=== PATIENT | male | born 1950 | race Caucasian/White ===

== ENCOUNTER 2019-05-22 20:59 | Emergency (ER) | payer MEDICARE, OTHER ==
--- NOTE | 2019-05-22 21:14 | ED Physician Documentation ---
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 Patient states that he has had episodes of bad back pain in the past, and he has a neurosurgeon who would typically prescribe him some Percocet which helps after several days. However he has not needed any pain medications for 2 years. Yesterday he began having some pain in his back which he associates with going up and down some stairs too quickly, he denies any trauma to the back. Pain got somewhat better last night, but then got much worse today. He states is a sharp pain which is in his left lower back, and is nonradiating. He denies any pain or burning with urination. He did have vomiting when the pain came on, which he says was because it was so intense. He denies any chest pain or shortness of breath. He states the pain has always been in the left lower back. Review of Systems Constitutional: denies: Fever Cardiac: denies: Chest pain / pressure Respiratory: denies: Dyspnea GI: reports: Vomiting. denies: Abdominal Pain : denies: Dysuria Musculoskeletal: reports: Back pain Neurologic: denies: Focal weakness, Numbness PD PAST MEDICAL HISTORY - Past Medical History Cardiovascular: Hypertension, Arrhythmia - Past Surgical History Ortho: Spine surgery Other past surgical history: Pacemaker - Present Medications Home Medications: Ambulatory Orders Medication Instructions Recorded Confirmed Cyclobenzaprine [Flexeril] 10 mg PO TID PRN #20 tablet 05/23/19 Hydrocodone/Acetaminophen 1 - 2 each PO Q6H PRN #14 tablet 05/23/19 [Hydrocodon-Acetaminophen 5-325] Lidocaine Patch 5% [Lidoderm Patch] 1 patch TOP DAILY PRN #10 patch 05/23/19 - Allergies Allergies/Adverse Reactions: Allergies Allergy/AdvReac Type Severity Reaction Status Date / Time No Known Drug Allergies Allergy Verified 05/22/19 21:05 - Social History Does the pt drink ETOH?: Yes Substance Use and Type: Marijuana PD ED PE NORMAL - Vitals Vital signs reviewed: Yes - General General: Alert and oriented X 3, Other (Very uncomfortable) - HEENT HEENT: PERRL - Neck Neck: Supple, no meningeal sign - Cardiac Cardiac: RRR, No murmur - Respiratory Respiratory: Clear bilaterally - Abdomen Abdomen: Soft, Non tender, Non distended - Back Back: Other (Tenderness in the left lumbar paraspinous region) - Derm Derm: Warm and dry - Extremities Extremities: No deformity - Neuro Neuro: Alert and oriented X 3, 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, No motor deficit, No sensory deficit, Normal speech - Psych Psych: Normal mood, Normal affect Results - Vitals Vitals: Vital Signs - 24 hr 05/22/19 05/22/19 05/22/19 21:05 21:08 23:15 Temperature 36.7 C Heart Rate 78 76 78 Respiratory 20 27 H 17 Rate Blood Pressure 193/89 H 157/95 H 194/152 H O2 Saturation 99 100 96 05/22/19 05/23/19 05/23/19 23:23 01:34 02:10 Temperature 36.9 C Heart Rate 75 82 73 Respiratory 18 18 17 Rate Blood Pressure 191/94 H 176/92 H 176/75 H O2 Saturation 98 97 99 Oxygen O2 Source Room air - EKG (time done) 21:24 Other comments: Other comments (Rate 71, rhythm atrial sensed ventricular paced, there is no STEMI by Sgarbossa criteria) - Labs Labs: Laboratory Tests 05/22/19 05/22/19 05/22/19 21:14 21:22 21:22 WBC 9.8 RBC 5.14 Hgb 15.3 Hct 44.7 MCV 87.0 MCH 29.8 MCHC 34.2 RDW 12.1 Plt Count 279 MPV 9.4 Neut # (Auto) 7.5 H Lymph # (Auto) 1.5 [place] # (Auto) 0.7 Eos # (Auto) 0.0 Baso # (Auto) 0.0 Absolute Nucleated RBC 0.00 Nucleated RBC % 0.0 Sodium 137 Potassium 3.7 Chloride 97 L Carbon Dioxide 26 Anion Gap 14.0 H BUN 23 H Creatinine 0.9 Estimated GFR (MDRD) 84 L Glucose 203 H Calcium 9.2 Total Bilirubin 0.8 AST 21 ALT 25 Alkaline Phosphatase 45 Total Protein 8.2 Albumin 4.9 Globulin 3.3 Albumin/Globulin Ratio 1.5 Lipase 25 Urine Color YELLOW Urine Clarity CLEAR Urine pH 7.0 Ur Specific [place] 1.020 Urine Protein NEGATIVE Urine Glucose (UA) NEGATIVE Urine Ketones TRACE Urine Occult Blood TRACE-LYSE Urine Nitrite NEGATIVE Urine Bilirubin NEGATIVE Urine Urobilinogen 0.2 (NORMAL) Ur Leukocyte Esterase NEGATIVE Ur Microscopic Review NOT INDICATED Urine Culture Comments NOT INDICATED - Rads (name of study) CT abd/pelvis WO Radiology: Other (No clear patient patient's pain, no nephrolithiasis or obstruction, a few sigmoid diverticuli but no diverticulitis, normal appendix) CT angio chest abdomen pelvis Radiology: Other PD MEDICAL DECISION MAKING - ED course Complexity details: considered differential (Nephrolithiasis, musculoskeletal pain, UTI, diverticulitis, fracture, muscle strain/sprain, aortic dissection, AAA) ED course: On arrival patient is very uncomfortable and hypertensive, he is vomiting. He was given morphine and Zofran as well as fluids, and patient had improvement of his nausea but continued to have pain. He was given Valium and Toradol, which greatly improved his pain. CT of the abdomen pelvis without contrast was performed and did not reveal a clear cause of patient's discomfort, no stones or other acute abnormality. Labs are unrevealing, urine is negative for infection or blood. Patient has no chest pain, no shortness of breath, his pain is truly located in the lower back. EKG shows a ventricular paced rhythm. I highly doubt ACS given he has no symptoms whatsoever in his chest. Patient had recurrence of his pain, and given his continued discomfort, as well as the fact that he has had episodes of vomiting, and severe, sudden onset of the pain, CTA was ordered to rule out aortic dissection. CTA negative for dissection or aneurysm. On repeat exam patient is feeling improved, and is able to ambulate. He has no red flags for spinal compression today, normal strength and movement in his legs, no signs of cauda equina. I discussed follow up with his PCP and neurosurgeon, prescribed him flexeril, lidocaine patches, and percocet with instructions on safe use, Patient was discharged home in the care of a friend. Departure - Departure Disposition: Home, Self Care Clinical Impression: Acute back pain Qualifiers: Back pain location: low back pain Back pain laterality: left Sciatica presence: without sciatica Qualified Code(s): M54.5 - Low back pain Condition: Good Instructions: ED Neck Back Pain General Follow-Up: Iggy Lopez MD [Primary Care Provider] - Within 1 week Prescriptions: Cyclobenzaprine [Flexeril] 10 mg PO TID PRN #20 tablet PRN Reason: Spasms Hydrocodone/Acetaminophen [Hydrocodon-Acetaminophen 5-325] 1 - 2 each PO Q6H PRN #14 tablet PRN Reason: pain Lidocaine Patch 5% [Lidoderm Patch] 1 patch TOP DAILY PRN #10 patch PRN Reason: pain Comments: You were seen today for back pain. Your CT scans are reassuring at this time, and this may be musculoskeletal pain or related to your vertebral disc herniation. Avoid straining your back, avoid lifting heavy objects, and take Tylenol and ibuprofen for the pain. If this is not adequate, you may try the Flexeril, or the Percocet, but do not combine these together as they can be sedating, and when combined together they can be dangerous. Return to the emergency department if you develop new or worsening pain, numbness or weakness in your extremities, difficulty urinating or defecating, or any other concerning symptoms. Do not drink alcohol or drive while taking narcotic pain medication. Note that many narcotic pain relievers also contain Tylenol/acetaminophen. Please ensure that your total dose of acetaminophen from all sources does not exceed 3 g (3000 mg) per day. You may get constipated while on this medication. Take a stool softener such as Colace twice a day while you are on it. Also add an [id number] laxative such as senna or MiraLAX on any day that you do not have a bowel movement. If you received a narcotic pain medication or sedative while in the emergency department, do not drive for the next 24 hours. Discharge Date/Time: 05/23/19 02:31
[2019-05-22] MEDS ORDERED: ONDANSETRON 4 MG/2 ML VIAL IVP STA (21:15)
[2019-05-22] MEDS ORDERED: MORPHINE 2 MG/ML CARPUJECT IVP STA (21:15)
[2019-05-22] MEDS ORDERED: SODIUM CHLORIDE 0.9% 1,000 ML IV ONE (21:16)
[2019-05-22 21:28] LABS: BASOPHILS % (AUTO) 0.4 %; EOSINOPHILS % (AUTO) 0.4 %; HGB - HEMOGLOBIN 15.3 g/dL (14.0-18.0); LYMPHOCYTES # (AUTO) 1.5 10^3/uL (1.5-3.5); LYMPHOCYTES % (AUTO) 15.2 %; MEAN CORPUSCULAR HEMOGLOBIN 29.8 pg (27.0-31.0); MEAN CORPUSCULAR HGB CONC 34.2 g/dL (32.0-36.0); MEAN PLATELET VOLUME 9.4 fL (7.4-11.4); MONOCYTES # (AUTO) 0.7 10^3/uL (0.0-1.0); MONOCYTES % (AUTO) 7.3 %; NEUTROPHILS # (AUTO) 7.5 10^3/uL (1.5-6.6); NEUTROPHILS % (AUTO) 76.4 %; PLT - PLATELET COUNT 279 10^3/uL (130-450); RED BLOOD COUNT 5.14 10^6/uL (4.70-6.10); RED CELL DISTRIBUTION WIDTH 12.1 % (12.0-15.0); WHITE BLOOD COUNT 9.8 x10^3/uL (4.8-10.8)
[2019-05-22 21:41] LABS: ALBUMIN 4.9 g/dL (3.2-5.5); ALBUMIN/GLOBULIN RATIO 1.5 (1.0-2.2); BILIRUBIN,TOTAL 0.8 mg/dL (0.2-1.0); CALCIUM 9.2 mg/dL (8.5-10.3); CREATININE 0.9 mg/dL (0.6-1.2); TOTAL PROTEIN 8.2 g/dL (6.7-8.2)
[2019-05-22 21:56] LABS: BILIRUBIN,URINE NEGATIVE (NEGATIVE); GLUCOSE, URINE (UA) NEGATIVE (NEGATIVE); KETONES,URINE (UA) TRACE mg/dL (NEGATIVE); LEUKOCYTE ESTERASE, URINE NEGATIVE (NEGATIVE); NITRITE,URINE NEGATIVE (NEGATIVE); OCCULT BLOOD,URINE TRACE-LYSE (NEGATIVE); PROTEIN,URINE NEGATIVE (NEGATIVE); UROBILINOGEN,URINE 0.2 (NORMAL) E.U./dL (NORMAL)
[2019-05-22 21:57] LABS: CLARITY,URINE CLEAR (CLEAR)
--- NOTE | 2019-05-22 22:16 | CT Report ---
Reason: Left flank pain, vomiting Procedure Date: 05/22/2019 Accession Number: [id number] / [id number] Procedure: CT - Abdomen/Pelvis WO CPT Code: Final Report FULL RESULT: EXAM: CT ABDOMEN AND PELVIS (CT KUB) EXAM DATE: 05/22/2019 09:53 PM. CLINICAL HISTORY: Left flank pain, vomiting. COMPARISONS: None. TECHNIQUE: Routine axial helical CT imaging was performed through the abdomen and pelvis without IV contrast. Reconstructions: Coronal and sagittal. In accordance with CT protocol optimization, one or more of the following dose reduction techniques were utilized for this exam: automated exposure control, adjustment of mA and/or KV based on patient size, or use of iterative reconstructive technique. FINDINGS: Lung Bases: Unremarkable. Right Kidney/Ureter: No stones, hydronephrosis, or hydroureter. No perinephric fat stranding. Left Kidney/Ureter: No stones, hydronephrosis, or hydroureter. No perinephric fat stranding. Other Solid Organs: Noncontrast images of the solid organs are grossly unremarkable. Gallbladder/Bile Ducts: Unremarkable. Peritoneal Cavity: No free fluid, free air or vinicio adenopathy. Bowel is grossly unremarkable. Few colonic diverticuli in sigmoid colon however no diverticulitis. Normal appendix in right lower quadrant. Pelvic Organs: No bladder stones or wall thickening. Noncontrast images of the visualized pelvic organs are unremarkable. Vasculature: Unremarkable. Other: None. IMPRESSION: No urinary tract stones or obstruction. Few sigmoid colonic diverticuli however no diverticulitis. Normal appendix. RADIA
[2019-05-22] MEDS ORDERED: diazePAM INJ 5 MG/ML SYRINGE IVP STA (23:05)
[2019-05-22] MEDS ORDERED: KETOROLAC 30 MG/ML VIAL IVP STA (23:07)
[2019-05-23] MEDS ORDERED: IOVERSOL 320 100 ML VIAL IVP ONE ×2 (00:26→00:58)
[2019-05-23] MEDS ORDERED: fentaNYL 100 MCG/2 ML VIAL IVP STA ×2 (00:34→01:30)
[2019-05-23] MEDS ORDERED: oxyCODONE 5 MG TABLET PO STA (01:30)
[2019-05-23] MEDS ORDERED: LIDOCAINE PATCH 5% TOP STA (01:47)
--- NOTE | 2019-05-23 01:56 | CT Report ---
Reason: aorta study - sudden severe back pain, diaphoresis Procedure Date: 05/23/2019 Accession Number: [id number] / [id number] Procedure: CT - ANGIO ABDOMEN/PELVIS W CPT Code: Final Report FULL RESULT: EXAM: CT ANGIOGRAM ABDOMEN AND PELVIS WITH CONTRAST EXAM DATE: 05/23/2019 12:59 AM. CLINICAL HISTORY: Aorta study - sudden severe back pain, diaphoresis. COMPARISONS: ABDOMEN/PELVIS W/O 05/22/2019 9:48 PM. TECHNIQUE: Routine helical CT angiogram imaging was performed through the abdomen and pelvis in the arterial phase. IV contrast: . Enteric contrast: No. Reconstructions: Coronal, sagittal, and 3D MIP reconstructions. In accordance with CT protocol optimization, one or more of the following dose reduction techniques were utilized for this exam: automated exposure control, adjustment of mA and/or KV based on patient size, or use of iterative reconstructive technique. FINDINGS: Vasculature: Minimal atherosclerotic disease of the abdominal aorta. No aneurysm or dissection. The celiac, superior mesenteric, inferior mesenteric, and renal arteries are unremarkable. The common, external, and internal iliac arteries are patent. The visualized common femoral arteries are unremarkable. Lung Bases: Please see separate CT. Abdominal Solid Organs: Normal. The liver, spleen, pancreas, adrenal glands, gallbladder and kidneys are normal in size and demonstrate no masses or abnormal enhancement. Peritoneal Cavity: Normal. No free fluid, free air, or acute inflammatory process. Pelvic Organs: Normal. The bladder and visualized pelvic organs are within normal limits. Bones: No significant abnormality. Other: None. IMPRESSION: Normal abdomen and pelvis CT angiogram. No aneurysm or dissection. RADIA
--- NOTE | 2019-05-23 01:58 | CT Report ---
Reason: aorta study - sudden severe back pain, diaphoresis Procedure Date: 05/23/2019 Accession Number: [id number] / [id number] Procedure: CT - ANGIO CHEST W/WO CPT Code: Final Report FULL RESULT: EXAM: CTA CHEST EXAM DATE: 05/23/2019 12:59 AM. CLINICAL HISTORY: Aorta study - sudden severe back pain, diaphoresis.. COMPARISON: ABDOMEN/PELVIS W/O 05/22/2019 9:48 PM. TECHNIQUE: Prior to and following intravenous administration of 100 mL of Optiray 320, multiplanar 3D/MIP reconstruction of the thoracic aorta was performed. In accordance with CT protocol optimization, one or more of the following dose reduction techniques were utilized for this exam: automated exposure control, adjustment of mA and/or KV based on patient size, or use of iterative reconstructive technique. FINDINGS: Vascular Structures: Normal. No aneurysm, dissection, or significant atherosclerotic disease of the thoracic aorta. The visualized pulmonary arteries are within normal limits. Lungs/Pleura: No consolidation, nodules, or edema. No effusions or pneumothorax. Mediastinum: Left subclavian pacemaker. No cardiomegaly or adenopathy. Upper Abdomen: Please see separate CT. Other: None. IMPRESSION: Normal chest CT angiogram. No aneurysm or dissection. RADIA
[2019-05-23 02:11] VITALS: BP 176/75
== END 2019-05-23 02:31 | disposition home or self-care (01) ==
LOC: ED 20:59
DX: M54.5 Low back pain (principal); R94.31 Abnormal electrocardiogram [ECG] [EKG]; I10 Essential (primary) hypertension; Z95.0 Presence of cardiac pacemaker
CPT/HCPCS: 36415; 71275; 74174; 74176; 80053; 81003; 83690; 85025; 93005; 96361; 96374; 96375; 99284; A9270; Q9967; 81001; 87086

== ENCOUNTER 2019-05-24 13:13 | Outpatient (CLI) | payer MEDICARE, OTHER | END 2019-05-24 13:14 | disposition critical access hospital (66) | LOC: EMS 13:13 | PROVIDERS: ATTEND Surgery | DX: R10.9 Unspecified abdominal pain (principal) ==

== ENCOUNTER 2019-05-24 13:24 | Emergency (ER) | payer MEDICARE, OTHER ==
[2019-05-24] MEDS ORDERED: SODIUM CHLORIDE 0.9% 1,000 ML IV ONE (13:42)
[2019-05-24] MEDS ORDERED: DEXAMETHASONE 10 MG/ML VIAL IVP STA (13:43)
--- NOTE | 2019-05-24 13:47 | ED Physician Documentation ---
PD HPI ABD PAIN - Stated complaint Stated Complaint: ABD PX - Chief complaint Chief Complaint: Abd Pain - History obtained from History obtained from: Patient, EMS - History of Present Illness Timing - onset: How many days ago (5) Timing - duration: Days Timing - details: Gradual onset, Still present, Waxing and waning Quality: Aching, Sharp, Pain Location: LLQ Radiation: Lower back, Left flank Improved by: Laying still Worsened by: Moving, Breathing, Position, Palpation Associated symptoms: Nausea, Vomiting Similar symptoms before: Diagnosis (lumbar disc disease) Recently seen: Emergency Dept - Additional information Additional information: 68-year-old male with a history of L5 disc disease and chronic intermittent pain in his lower back has had acute low back pain yesterday he was seen here in the emergency department his pain was out of proportion to examined and findings and concern for alternative diagnosis was made including CT scan of the chest abdomen and pelvis with contrast and there was no evidence of dissection or rupture or aneurysm. There was no reason specifically for the patient's pain discovered on CT scanning. The patient had a painful night last night and he seems to say that his pain is shifted to the left lower quadrant where he feels there is some swelling in his lower abdomen. The pain is worse with any movement and with walking. He has had some nausea and vomiting associated. Review of Systems Constitutional: denies: Fever, Chills, Myalgias Eyes: denies: Decreased vision Ears: denies: Ear pain Nose: denies: Rhinorrhea / runny nose, Congestion Throat: denies: Sore throat Cardiac: denies: Chest pain / pressure, Palpitations Respiratory: denies: Dyspnea, Cough GI: reports: Abdominal Pain, Nausea, Vomiting : denies: Dysuria, Frequency Musculoskeletal: reports: Back pain. denies: Neck pain, Extremity pain Neurologic: denies: Generalized weakness, Focal weakness, Numbness PD PAST MEDICAL HISTORY - Past Medical History Cardiovascular: Hypertension, Arrhythmia Respiratory: None Neuro: None Endocrine/Autoimmune: None GI: None : None HEENT: None Psych: None Musculoskeletal: Chronic back pain Derm: None - Past Surgical History Past Surgical History: No Ortho: Spine surgery Cardiovascular: Pacemaker - Present Medications Home Medications: Ambulatory Orders Medication Instructions Recorded Confirmed Cyclobenzaprine [Flexeril] 10 mg PO TID PRN #20 tablet 05/23/19 Hydrocodone/Acetaminophen 1 - 2 each PO Q6H PRN #14 tablet 05/23/19 [Hydrocodon-Acetaminophen 5-325] Lidocaine Patch 5% [Lidoderm Patch] 1 patch TOP DAILY PRN #10 patch 05/23/19 - Allergies Allergies/Adverse Reactions: Allergies Allergy/AdvReac Type Severity Reaction Status Date / Time No Known Drug Allergies Allergy Verified 05/24/19 13:32 - Social History Does the pt smoke?: No Smoking Status: Never smoker Does the pt drink ETOH?: Yes Does the pt have substance abuse?: Yes - Immunizations Immunizations are current?: Yes - POLST Patient has POLST: No PD ED PE NORMAL - Vitals Vital signs reviewed: Yes (hypertensive) - General General: Alert and oriented X 3, Well developed/nourished, Other (facial expression of pain with irrigator overhead tone and flat affect with waves of pain related to movement. ) - HEENT HEENT: Atraumatic, PERRL, EOMI - Neck Neck: Supple, no meningeal sign - Cardiac Cardiac: RRR, No murmur - Respiratory Respiratory: No respiratory distress, Clear bilaterally - Abdomen Abdomen: Soft, Other (LLQ tenderness without garding and not reproducible. There is no pain and no herniation into the inguinal canal with valsalva on exam. There is no referred tenderness. The left flank is with tenderness not reproducible. ) - Back Back: No spinal TTP, Other (L CVA tenderness is mild and not reproducible. 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, No motor deficit, No sensory deficit, Normal speech Eye Opening: Spontaneous Motor: Obeys Commands Verbal: Oriented GCS Score: 15 - Psych Psych: Other (Mood is painful and the affect is flat.) Results - Vitals Vitals: Vital Signs - 24 hr 05/24/19 13:25 Temperature 36.7 C Heart Rate 72 Respiratory 24 Rate Blood Pressure 209/101 H O2 Saturation 99 Oxygen O2 Source Room air - Labs Labs: Laboratory Tests 05/24/19 05/24/19 05/24/19 13:58 13:58 13:58 WBC 9.3 RBC 5.42 Hgb 15.5 Hct 46.0 MCV 84.9 MCH 28.6 MCHC 33.7 RDW 12.4 Plt Count 283 MPV 9.2 Neut # (Auto) 7.2 H Lymph # (Auto) 1.4 L [place] # (Auto) 0.6 Eos # (Auto) 0.0 Baso # (Auto) 0.0 Absolute Nucleated RBC 0.00 Nucleated RBC % 0.0 Sodium 138 Potassium 4.2 Chloride 100 L Carbon Dioxide 26 Anion Gap 12.0 BUN 14 Creatinine 0.9 Estimated GFR (MDRD) 84 L Glucose 145 H Lactic Acid 1.8 Calcium 9.7 Total Bilirubin 1.0 AST 21 ALT 21 Alkaline Phosphatase 41 L Total Protein 8.3 H Albumin 4.9 Globulin 3.4 Albumin/Globulin Ratio 1.4 Lipase 25 Urine Color Urine Clarity Urine pH Ur Specific [place] Urine Protein Urine Glucose (UA) Urine Ketones Urine Occult Blood Urine Nitrite Urine Bilirubin Urine Urobilinogen Ur Leukocyte Esterase Ur Microscopic Review Urine Culture Comments 05/24/19 14:19 WBC RBC Hgb Hct MCV MCH MCHC RDW Plt Count MPV Neut # (Auto) Lymph # (Auto) [place] # (Auto) Eos # (Auto) Baso # (Auto) Absolute Nucleated RBC Nucleated RBC % Sodium Potassium Chloride Carbon Dioxide Anion Gap BUN Creatinine Estimated GFR (MDRD) Glucose Lactic Acid Calcium Total Bilirubin AST ALT Alkaline Phosphatase Total Protein Albumin Globulin Albumin/Globulin Ratio Lipase Urine Color YELLOW Urine Clarity CLEAR Urine pH 7.5 Ur Specific [place] 1.020 Urine Protein NEGATIVE Urine Glucose (UA) NEGATIVE Urine Ketones 40 H Urine Occult Blood TRACE-INTA Urine Nitrite NEGATIVE Urine Bilirubin NEGATIVE Urine Urobilinogen 0.2 (NORMAL) Ur Leukocyte Esterase NEGATIVE Ur Microscopic Review NOT INDICATED Urine Culture Comments NOT INDICATED Procedures - IVC sono (time) 1340 Bedside IVC sono: IVC measures (cm) (0.92), Dehydration (est 1-2 liter deficit) PD MEDICAL DECISION MAKING - ED course Complexity details: reviewed old records, reviewed results, re-evaluated patient, considered differential, d/w patient ED course: 68-year-old male with low back pain beginning yesterday has had progression and worsening of his pain overnight despite treatment. He presents to the emergency department today with left lower quadrant abdominal pain that is burning in nature and he does not have reproducible localized peritonitis. He does not have evidence of herniation. He does have evidence of muscle strain and spasm. To both his back and he is abdomen. He is found to be dehydrated on interrogation the inferior vena cava and IV saline is begun as well as dex amethasone and pain medication. The patient's pain was out of proportion to his examination and so much so that I became concerned about the possibility of dissection or AAA or other abdominal catastrophe and I was happy to see the work-up done yesterday included the angiogram. And a detailed picture of the patient's abdomen revealing no specific internal abnormality. I personally reviewed the films and I do not see any additional subtle findings for constipation or anything that would cause an abnormality to the patient's pain behavior. We did find the patient was dehydrated and he did improve with hydration pain medication and dexamethasone. Departure - Departure Disposition: Home, Self Care Clinical Impression: Dehydration, Back muscle spasm Condition: Stable Instructions: ED Dehydration, ED Spasm Back No Trauma Follow-Up: Iggy Lopez MD [Primary Care Provider] - Comments: Today it appears the excessive pain you have is related to dehydration and I suspect the dehydration is related to diabetes. This will require a follow-up with your primary care doctor for evaluation of diabetes. In the meantime make certain you hydrate well and take the pain medication muscle relaxant as prescribed as needed.
[2019-05-24] MEDS ORDERED: ONDANSETRON 4 MG/2 ML VIAL IVP STA (13:55)
[2019-05-24] MEDS ORDERED: KETOROLAC 30 MG/ML VIAL IVP STA (13:55)
[2019-05-24] MEDS ORDERED: HYDROmorphone 1 MG/ML CARPUJECT IVP STA (13:55)
[2019-05-24 14:02] LABS: BASOPHILS % (AUTO) 0.2 %; HGB - HEMOGLOBIN 15.5 g/dL (14.0-18.0); LYMPHOCYTES # (AUTO) 1.4 10^3/uL (1.5-3.5); LYMPHOCYTES % (AUTO) 14.9 %; MEAN CORPUSCULAR HEMOGLOBIN 28.6 pg (27.0-31.0); MEAN CORPUSCULAR HGB CONC 33.7 g/dL (32.0-36.0); MEAN CORPUSCULAR VOLUME 84.9 fL (80.0-94.0); MEAN PLATELET VOLUME 9.2 fL (7.4-11.4); MONOCYTES # (AUTO) 0.6 10^3/uL (0.0-1.0); MONOCYTES % (AUTO) 6.8 %; NEUTROPHILS # (AUTO) 7.2 10^3/uL (1.5-6.6); NEUTROPHILS % (AUTO) 77.8 %; PLT - PLATELET COUNT 283 10^3/uL (130-450); RED BLOOD COUNT 5.42 10^6/uL (4.70-6.10); RED CELL DISTRIBUTION WIDTH 12.4 % (12.0-15.0); WHITE BLOOD COUNT 9.3 x10^3/uL (4.8-10.8)
[2019-05-24 14:15] LABS: ALBUMIN 4.9 g/dL (3.2-5.5); ALBUMIN/GLOBULIN RATIO 1.4 (1.0-2.2); CALCIUM 9.7 mg/dL (8.5-10.3); CREATININE 0.9 mg/dL (0.6-1.2); TOTAL PROTEIN 8.3 g/dL (6.7-8.2)
[2019-05-24 14:41] LABS: BILIRUBIN,URINE NEGATIVE (NEGATIVE); GLUCOSE, URINE (UA) NEGATIVE (NEGATIVE); KETONES,URINE (UA) 40 mg/dL (NEGATIVE); LEUKOCYTE ESTERASE, URINE NEGATIVE (NEGATIVE); NITRITE,URINE NEGATIVE (NEGATIVE); OCCULT BLOOD,URINE TRACE-INTA (NEGATIVE); PH,URINE 7.5 PH (5.0-7.5); PROTEIN,URINE NEGATIVE (NEGATIVE); UROBILINOGEN,URINE 0.2 (NORMAL) E.U./dL (NORMAL)
[2019-05-24 14:47] LABS: CLARITY,URINE CLEAR (CLEAR)
[2019-05-24 15:23] VITALS: BP 148/88
== END 2019-05-24 15:24 | disposition home or self-care (01) ==
LOC: EDUNIT# → ED 13:24
DX: E86.0 Dehydration (principal); M62.830 Muscle spasm of back; G89.29 Other chronic pain; I10 Essential (primary) hypertension; Z95.0 Presence of cardiac pacemaker
CPT/HCPCS: 36415; 80053; 81003; 83605; 83690; 85025; 96374; 96375; 99284; 99285; J1170; 81001; 87086

== ENCOUNTER 2021-06-24 08:00 | Outpatient (CLI) | payer MEDICARE, OTHER | END 2021-06-24 23:59 | LOC: LAB.N 08:00 | PROVIDERS: ATTEND Family Medicine | DX: R09.81 Nasal congestion (principal); Z20.822 Contact with and (suspected) exposure to COVID-19 ==

== ENCOUNTER 2021-11-30 07:05 | Day surgery (SDC) | payer MEDICARE ==
[2021-11-30] MEDS ORDERED: LACTATED RINGERS 1,000 ML IV ONE ×2 (07:20→08:53)
--- NOTE | 2021-11-30 07:30 | ANESTHESIA ---
Pre-Anesthesia VS, & Labs - Diagnosis screening - Procedure colonoscopy Height: 5 ft 7 in - NPO >8 hours Last Fluid Intake: am prep - Lab Results Lab results reviewed: Yes Home Medications and Allergies Home Medications: Ambulatory Orders Aspirin [[place] Aspirin] 81 mg PO DAILY 11/30/21 Losartan [Cozaar] 50 mg PO DAILY 11/30/21 Rosuvastatin Calcium [Crestor] 40 mg PO DAILY 11/30/21 Allergies/Adverse Reactions: Allergies Allergy/AdvReac Type Severity Reaction Status Date / Time No Known Drug Allergies Allergy Verified 05/24/19 13:32 Anes History & Medical History - Anesthetic History Anesthesia Complications: reports: No previous complications Family history of Anesthesia Complications: Denies Family history of Malignant Hyperthermia: Denies - Medical History Cardiovascular: reports: Hypertension, Arrhythmia Pulmonary: reports: None Gastrointestinal: reports: None Urinary: reports: None Neuro: reports: None Musculoskeletal: reports: Chronic back pain Endocrine/Autoimmune: reports: None Blood Disorders: reports: None Skin: reports: None Smoking Status: Never smoker - Surgical History Cardiothoracic: reports: Pacemaker Orthopedic: reports: Spine surgery Exam General: Alert, Oriented x3, Cooperative Dental: WNL Mouth Openin Fingerbreadth Neck Mobility: Normal Mallampati classification: II Thyromental Distance: 4-6 cm Respiratory: Lungs clear, Normal breath sounds, No respiratory distress Cardiovascular: Regular rate Neurological: Normal speech Mental/Cognitive Status: Alert/Oriented X3, Normal for patient Cognitive Status: Within normal limits Plan Anesthesia Type: Total IV Consent for Procedure(s) Verified and Reviewed: Yes Code Status: Attempt Resuscitation ASA classification: 3-Severe systemic disease Is this case an emergency?: No
[2021-11-30] MEDS ORDERED: PROPOFOL 500 MG/50 ML 500 MG/50 ML VIAL ONE (07:55)
[2021-11-30] MEDS ORDERED: MIDAZOLAM 2 MG/2 ML VIAL ONE (07:55)
--- NOTE | 2021-11-30 09:42 | ANESTHESIA POST OP EVALUATION ---
Anesthesia Post Eval - Post Anesthesia Eval Vitals: Last Vital Signs Temp 36.5 C 11/30/21 09:16 Pulse 60 11/30/21 09:16 Resp 16 11/30/21 09:16 BP 134/72 H 11/30/21 09:16 Pulse Ox 99 11/30/21 09:16 CV Function Including HR & BP: Stable Pain Control: Satisfactory Nausea & Vomiting: Negative Mental Status: Baseline Respiratory Status: Airway Patent Hydration Status: Satisfactory Anesthesia Complications: None
[2021-11-30 09:43] VITALS: BP 129/72
== END 2021-11-30 07:06 | disposition home or self-care (01) ==
LOC: SDS 07:05
PROVIDERS: ATTEND Surgery
PROC: 0DBL8ZZ Excision of Transverse Colon, Via Natural or Artificial Opening Endoscopic (ICD-10-PCS; 2021-11-30)
PROC: 0D5H8ZZ Destruction of Cecum, Via Natural or Artificial Opening Endoscopic (ICD-10-PCS; 2021-11-30)
PROC: 0DBK8ZZ Excision of Ascending Colon, Via Natural or Artificial Opening Endoscopic (ICD-10-PCS; principal; 2021-11-30 08:15)
DX: Z12.11 Encounter for screening for malignant neoplasm of colon (principal); D12.3 Benign neoplasm of transverse colon; D12.2 Benign neoplasm of ascending colon; K64.8 Other hemorrhoids; D12.0 Benign neoplasm of cecum; I45.10 Unspecified right bundle-branch block
CPT/HCPCS: 45385; 45388; J7120

== ENCOUNTER 2022-06-19 13:21 | Emergency (ER) | payer MEDICARE ==
[2022-06-19 13:57] LABS: BASOPHILS % (AUTO) 0.3 %; EOSINOPHILS # (AUTO) 0.1 10^3/uL (0.0-0.7); EOSINOPHILS % (AUTO) 1.3 %; HCT - HEMATOCRIT 45.4 % (42.0-52.0); HGB - HEMOGLOBIN 15.2 g/dL (14.0-18.0); LYMPHOCYTES % (AUTO) 31.6 %; MEAN CORPUSCULAR HEMOGLOBIN 28.6 pg (27.0-31.0); MEAN CORPUSCULAR HGB CONC 33.5 g/dL (32.0-36.0); MEAN CORPUSCULAR VOLUME 85.5 fL (80.0-94.0); MEAN PLATELET VOLUME 9.5 fL (7.4-11.4); MONOCYTES # (AUTO) 0.4 10^3/uL (0.0-1.0); MONOCYTES % (AUTO) 6.9 %; NEUTROPHILS # (AUTO) 3.7 10^3/uL (1.5-6.6); NEUTROPHILS % (AUTO) 59.7 %; PLT - PLATELET COUNT 297 10^3/uL (130-450); RED BLOOD COUNT 5.31 10^6/uL (4.70-6.10); RED CELL DISTRIBUTION WIDTH 12.8 % (12.0-15.0); WHITE BLOOD COUNT 6.2 x10^3/uL (4.8-10.8)
[2022-06-19 14:14] LABS: ALBUMIN 4.6 g/dL (3.2-5.5); ALBUMIN/GLOBULIN RATIO 1.5 (1.0-2.2); BILIRUBIN,TOTAL 0.5 mg/dL (0.2-1.0); CALCIUM 9.4 mg/dL (8.5-10.3); CREATININE 0.8 mg/dL (0.6-1.2); POTASSIUM 4.1 mmol/L (3.5-5.0); TOTAL PROTEIN 7.7 g/dL (6.7-8.2)
--- NOTE | 2022-06-19 14:55 | XRAY Report ---
PROCEDURE: Chest 1 View X-Ray INDICATIONS: Chest pain TECHNIQUE: One view of the chest was acquired. COMPARISON: None. FINDINGS: Surgical changes and devices: Left chest wall pulse generator and dual chamber electrodes leads in p lace. Lungs and pleura: No dense consolidation or pleural effusion. Mildly prominent interstitium. Mediastinum: Mediastinal contours appear normal. Heart size is normal. Bones and chest wall: No suspicious bony lesions. Overlying soft tissues appear unremarkable. IMPRESSION: Mildly prominent interstitium could represent senescent lung markings, edema, or atypical infection. No pleural effusions or dense consolidation. Reviewed by: French Da Silva MD on 06/19/2022 2:53 PM PST Approved by: French Da Silva MD on 06/19/2022 2:53 PM PST Station ID: [id number]
[2022-06-19 17:06] VITALS: BP 155/90
--- NOTE | 2022-06-19 17:11 | ED Physician Documentation ---
History of Present Illness - Stated complaint Stated Complaint: LT SHOULDER PX - Chief complaint Chief Complaint: Ext Problem - History obtained from History obtained from: Patient - Additonal information Additional information: The patient comes to the emergency department with chief complaint of left shoulder pain, worse with movement, for the last week, and states that then, he woke up from a nap this afternoon with a sense of pressure over his sternal area and left chest. He states he tried to turn to his right, reaching his arm across his chest, when the pain and pressure worsened greatly and shot into his shoulder and down his arm. The patient states when he returned to the position he [place], the pain relieved again. He states that every time he tries to sit up, especially if he is twisting to the right, he gets pain in the same area. He denies any direct trauma. 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 He states that when his left shoulder pain started last week, he would noticed pain shooting up into his neck and down his left arm. He denies any shortness of breath, nausea, lightheadedness, or diaphoresis. No history of diabetes or hypertension. No other complaints at this time. Review of Systems Ten Systems: 10 systems reviewed and negative Constitutional: reports: Reviewed and negative Eyes: reports: Reviewed and negative Ears: reports: Reviewed and negative Nose: reports: Reviewed and negative Throat: reports: Reviewed and negative Cardiac: reports: Chest pain / pressure Respiratory: reports: Reviewed and negative GI: reports: Reviewed and negative : reports: Reviewed and negative Skin: reports: Reviewed and negative Musculoskeletal: reports: Neck pain, Extremity pain, Joint pain Neurologic: reports: Reviewed and negative Psychiatric: reports: Reviewed and negative Endocrine: reports: Reviewed and negative Immunocompromised: reports: Reviewed and negative PD PAST MEDICAL HISTORY - Past Medical History Cardiovascular: Hypertension, Arrhythmia Respiratory: None Neuro: None Endocrine/Autoimmune: None GI: None : None HEENT: None Psych: None Musculoskeletal: Chronic back pain Derm: None - Past Surgical History Past Surgical History: No Ortho: Spine surgery Cardiovascular: Pacemaker - Present Medications Home Medications: Ambulatory Orders Medication Instructions Recorded Confirmed Lidocaine Patch 5% [Lidoderm Patch] 1 patch TOP DAILY PRN #10 patch 05/23/19 11/30/21 Aspirin [[place]it[place] Aspirin] 81 mg PO DAILY 11/30/21 11/30/21 Losartan [Cozaar] 50 mg PO DAILY 11/30/21 11/30/21 Rosuvastatin Calcium [Crestor] 40 mg PO DAILY 11/30/21 11/30/21 Cyclobenzaprine [Flexeril] 10 mg PO TID PRN #20 tablet 06/19/22 predniSONE [Deltasone] 60 mg PO DAILY 5 Days #15 tablet 06/19/22 - Allergies Allergies/Adverse Reactions: Allergies Allergy/AdvReac Type Severity Reaction Status Date / Time No Known Drug Allergies Allergy Verified 06/19/22 13:36 - Social History Does the pt smoke?: No Smoking Status: Never smoker Does the pt drink ETOH?: Yes Does the pt have substance abuse?: Yes - Immunizations Immunizations are current?: Yes - POLST Patient has POLST: No PD ED PE NORMAL - Vitals Vital signs reviewed: Yes - General General: Alert and oriented X 3, No acute distress, Well developed/nourished - HEENT HEENT: Atraumatic, PERRL, EOMI, Moist mucous membranes - Neck Neck: Supple, no meningeal sign - Cardiac Cardiac: RRR, No murmur, Other (Pacemaker in place on CW.) - Respiratory Respiratory: No respiratory distress, Clear bilaterally - Abdomen Abdomen: Soft, Non tender, Non distended - Derm Derm: Normal color, Warm and dry, No rash - Extremities Extremities: No deformity, Other (TTP L anterior shoulder and trapezius distribution. Mildly limited ROM.) - Neuro Neuro: Alert and oriented X 3 - Psych Psych: Normal mood, Normal affect Results - Vitals Vitals: Oxygen O2 Source Room air - EKG (time done) 1338 Rate: Rate (enter#) (61) Rhythm: Paced Compare to prior EKG: Old EKG unavailable Computer interpretation: Agree with computer - Labs Labs: Laboratory Tests 06/19/22 06/19/22 06/19/22 13:50 13:50 13:50 WBC 6.2 RBC 5.31 Hgb 15.2 Hct 45.4 MCV 85.5 MCH 28.6 MCHC 33.5 RDW 12.8 Plt Count 297 MPV 9.5 Neut # (Auto) 3.7 Lymph # (Auto) 2.0 Schley # (Auto) 0.4 Eos # (Auto) 0.1 Baso # (Auto) 0.0 Absolute Nucleated RBC 0.00 Nucleated RBC % 0.0 Sodium 138 Potassium 4.1 Chloride 100 L Carbon Dioxide 28 Anion Gap 10.0 BUN 20 Creatinine 0.8 Estimated GFR (MDRD) 95 Glucose 97 Calcium 9.4 Total Bilirubin 0.5 AST 18 ALT 20 Alkaline Phosphatase 39 L Troponin I High Sens 4.3 Total Protein 7.7 Albumin 4.6 Globulin 3.1 Albumin/Globulin Ratio 1.5 Lipase 32 - Rads (name of study) chest XR Radiology: Final report received, EMP read indepedently, See rad report (neg) PD MEDICAL DECISION MAKING - ED course Complexity details: reviewed results, re-evaluated patient, considered differential, d/w patient ED course: The pt's work-up was completely negative. The pain sounded more mechanical/musculoskeletal in nature, and we have discussed symptomatic management for this. We have also discussed the need for follow-up, should sx continue. Departure - Departure Disposition: 01 Home, Self Care Clinical Impression: Cervical nerve root impingement, Anterior chest wall pain Left shoulder pain Qualifiers: Chronicity: acute Qualified Code(s): M25.512 - Pain in left shoulder Condition: Stable Instructions: ED Chest Pain Costochondritis Prescriptions: predniSONE [Deltasone] 60 mg PO DAILY 5 Days #15 tablet Cyclobenzaprine [Flexeril] 10 mg PO TID PRN #20 tablet PRN Reason: Spasms Comments: Your labs, chest x-ray, and EKG all look good. There is no evidence of a heart attack or other serious cause of your chest pain at this time. Please follow-up with your primary care physician for further concerns. You may take the medications prescribed, as needed. Your prescriptions have been electronically transmitted to the [facility] pharmacy in [place], at your request. Discharge Date/Time: 06/19/22 17:26
[2022-06-19] MEDS ORDERED: predniSONE 20 MG TABLET PO STA (17:14)
== END 2022-06-19 17:26 | disposition home or self-care (01) ==
LOC: ED 13:21
DX: M75.42 Impingement syndrome of left shoulder (principal); R78.9 Finding of unspecified substance, not normally found in blood; I10 Essential (primary) hypertension; Z95.0 Presence of cardiac pacemaker
CPT/HCPCS: 36415; 71045; 80053; 83690; 84484; 85025; 93005; 99284; J7512

== ENCOUNTER → 2022-07-06 | Outpatient (CLI) | payer MEDICARE | END | disposition short-term general hospital (02) | LOC: EMS 10:53 | DX: R07.9 Chest pain, unspecified (principal) | CPT/HCPCS: A0425; A0427 ==